=== PATIENT | female | born 1980 | race Hispanic/Latino ===

== ENCOUNTER 2022-06-09 19:23 | Emergency (ER) | payer SELFPAY ==
[~2022-06-09] VITALS: Ht 157.5 cm; Wt 104.3 kg
[2022-06-09] MEDS ORDERED: KETOROLAC TROMETHAMINE 30 MG/ML VIAL IV STA (19:43)
[2022-06-09] MEDS ORDERED: KETOROLAC TROMETHAMINE 60 MG/2 ML VIAL IM ONE (19:45)
[2022-06-09 21:13] LABS: CLARITY,URINE CLEAR (CLEAR); COLOR,URINE YELLOW (YELLOW); KETONES,URINE 1+ (NEGATIVE); LEUKOCYTE ESTERASE ,URINE NEGATIVE (NEGATIVE); NITRITE,URINE NEGATIVE (NEGATIVE); PROTEIN,URINE DIPSTICK NEGATIVE (NEGATIVE); URINE UROBILINOGEN 0.2 mg/dL (0.2 - 1)
[2022-06-09 21:25] LABS: BACTERIA,URINE FEW /HPF; EPITHELIAL CELLS,URINE RARE /LPF; WBC,URINE (MAN) 0-5 /HPF (0-5)
[2022-06-09] MEDS ORDERED: ULTRAM 50MG50 MG PO (22:34)
== END 2022-06-09 22:37 | disposition home or self-care (01) ==
LOC: ER 19:53
DX: M54.50 Low back pain, unspecified (principal); N20.0 Calculus of kidney; K76.0 Fatty (change of) liver, not elsewhere classified; R11.0 Nausea
CPT/HCPCS: 74176; 81001; 81025; 99283; J1885

== ENCOUNTER 2024-06-07 19:06 | Emergency (ER) | payer BC ==
[~2024-06-07] VITALS: Ht 157.5 cm; Wt 89.4 kg
[~2024-06-07 19:06] MED LIST: ULTRAM 50MG50 MG PO
[2024-06-07 19:22] LABS: BASOPHILS # (AUTO) 0.1 (0.0-0.1); BASOPHILS % 0.7 % (0.0-1.0); EOSINOPHILS # (AUTO) 0.2 (0.0-0.4); EOSINOPHILS % 1.7 % (0.0-6.0); HEMOGLOBIN 13.5 g/dL (12.0-16.0); LYMPHOCYTES # (AUTO) 3.2 (1.0-3.2); LYMPHOCYTES % 32.1 % (18.0-39.1); MEAN CORPUSCULAR HEMOGLOBIN 29.9 pg (28-32); MEAN CORPUSCULAR HGB CONC 33.8 g/dL (31-35); MEAN CORPUSCULAR VOLUME 88.7 fL (81-99); MONOCYTES # (AUTO) 0.7 (0.2-0.8); MONOCYTES % 7.4 % (4.4-11.3); NEUTROPHILS # (AUTO) 5.8 (2.1-6.9); NEUTROPHILS % 57.7 % (38.7-80.0); PLATELET COUNT 274 x10e3/uL (140-360); RED BLOOD COUNT 4.51 x10e6/uL (3.6-5.1); RED CELL DISTRIBUTION WIDTH 12.7 % (11.7-14.4); WHITE BLOOD COUNT 10.01 x10e3/uL (4.8-10.8)
[2024-06-07 19:46] LABS: ALBUMIN 4.1 g/dL (3.5-5.0); ALBUMIN/GLOBULIN RATIO 1.1 (0.8-2.0); ANION GAP 15.6 mmol/L (8-16); BILIRUBIN,TOTAL 0.2 mg/dL (0.2-1.2); CALCIUM 9.2 mg/dL (8.4-10.2); CREATININE, SERUM 0.74 mg/dL (0.57-1.11); POTASSIUM 3.6 mmol/L (3.5-5.1); TOTAL PROTEIN 7.7 g/dL (6.5-8.1)
[2024-06-07 19:52] LABS: TROPONIN I 0.003 ng/mL (0-0.300)
[2024-06-07] MEDS: SODIUM CHLORIDE 0.9% 1000ML 1,000 ML IV ONE (21:36)
[2024-06-07] MEDS: ONDANSETRON HCL INJ 2MG/ML 2ML 2 MG/ML VIAL IV STA (21:37)
[2024-06-07 22:59] LABS: TROPONIN I 0.002 ng/mL (0-0.300)
[2024-06-07 23:21] VITALS: PULSE 91; RESP 18; TEMP 98.6; O2SAT 100
== END 2024-06-07 23:25 | disposition home or self-care (01) ==
LOC: ER 19:09
DX: R20.2 Paresthesia of skin (principal); T75.4XXA Electrocution, initial encounter; R07.89 Other chest pain; R51.9 Headache, unspecified; R11.0 Nausea; E11.9 Type 2 diabetes mellitus without complications; R94.31 Abnormal electrocardiogram [ECG] [EKG]; F17.210 Nicotine dependence, cigarettes, uncomplicated
CPT/HCPCS: 36415; 71045; 80053; 82550; 84484; 85025; 93005; 99284; J2405; J7030